=== PATIENT | male | born 1970 | race Caucasian/White ===

== ENCOUNTER 2017-08-07 12:55 | Emergency (ER) | payer BC ==
[2017-08-07] MEDS ORDERED: FENTANYL CITR 100 MCG/2 ML ONE (13:13)
[2017-08-07] MEDS ORDERED: ONDANSETRON 4 MG/2 ML VIAL ONE (13:13)
[2017-08-07] MEDS ORDERED: NA CHLORIDE 0.9% 1,000 ML ONE ×2 (13:13→13:45)
[2017-08-07] MEDS ORDERED: PROPOFOL 200 MG/20 ML VIAL IV ONE (14:26)
--- NOTE | 2017-08-07 14:47 | RAD REPORT ---
EXAM DESCRIPTION: RAD - Shoulder Left 2 View - 08/07/2017 1:58 pm CLINICAL HISTORY: Trauma, shoulder pain COMPARISON: None. TECHNIQUE: Internal and external rotation views of the left shoulder were obtained. FINDINGS: Two views are obtained though both are in similar positioning. There is dislocation of the humeral head medial and inferior to the glenoid. This is a classic location for anterior dislocation . AC joint is normal in appearance. No abnormal calcifications. IMPRESSION: Anterior humerus dislocation with no acute fractures seen.
--- NOTE | 2017-08-07 14:52 | ER ---
Nurse's Notes [facility] Name: Boby Sim Age: 47 yrs Sex: Male : 1970 Arrival Date: 08/07/2017 Time: 12:59 Bed 3 Private MD: out of town, doctor Diagnosis: Recurrent dislocation, left shoulder Presentation: 08/07 13:03 Presenting complaint: Patient states: I think I dislocated my shoulder, has happened 2 la1 twice before. Transition of care: patient was not received from another setting of care. Onset of symptoms was August 07, 2017. Initial Sepsis Screen: Does the patient meet any 2 criteria? No. Patient's initial sepsis screen is negative. Does the patient have a suspected source of infection? No. Patient's initial sepsis screen is negative. Care prior to arrival: None. 13:03 Method Of Arrival: Wheelchair la1 13:03 Acuity: RIVAS 3 la1 Historical: - Allergies: 13:04 Bactrim; la1 13:04 Biaxin; la1 - PMHx: 13:04 None; la1 - Immunization history:: Adult Immunizations up to date. - Social history:: Smoking status: Patient/guardian denies using tobacco. Screenin:15 Abuse screen: Denies threats or abuse. Denies injuries from another. Nutritional sg screening: No deficits noted. Tuberculosis screening: No symptoms or risk factors identified. Never had TB. Fall Risk None identified. Assessment: 13:15 General: Appears in no apparent distress. uncomfortable, well groomed, well developed, sg well nourished, Behavior is calm, cooperative, appropriate for age. Pain: Complains of pain in anterior aspect of left shoulder and posterior aspect of left shoulder Pain does not radiate. Quality of pain is described as aching, sharp, tender. Neuro: Level of Consciousness is awake, alert, obeys commands, Oriented to person, place, time, situation, Fisher Clam are equal bilaterally Moves all extremities. Full function Speech is normal, Facial symmetry appears normal, Pupils are PERRLA. Cardiovascular: Heart tones S1 S2 present Capillary refill is brisk in bilateral fingers Patient's skin is warm and dry. Chest pain is denied. Respiratory: Airway is patent Respiratory effort is even, unlabored, Respiratory pattern is regular, symmetrical, Breath sounds are clear. GI: No signs and/or symptoms were reported involving the gastrointestinal system. : No signs and/or symptoms were reported regarding the genitourinary system. EENT: No signs and/or symptoms were reported regarding the EENT system. Derm: Skin is intact, is healthy with good turgor, Skin is moist, Skin is pale, Skin temperature is cool abrasion noted to the right big toe joint, small amount of bleeding noted at this time, appears anu, pt at [facility]. Musculoskeletal: Range of motion: limited in left shoulder. 13:50 Reassessment: Patient appears in no apparent distress at this time. exam room and pt sg prepared for conscious sedation, Lukasz DIEGO and and at [facility] for closed shoulder reduction of left shoulder, pt tolerated procedure well. 13:50 Reassessment: SEE CONSCIOUS SEDATION FLOWSHEET. sg 14:00 Reassessment: Patient appears in no apparent distress at this time. Patient and/or sg family updated on plan of care and expected duration. Pain level reassessed. Patient is alert, oriented x 3, equal unlabored respirations, skin warm/dry/pink. awaiting new orders at this time Patient denies pain at this time. Patient states feeling better. Patient states symptoms have improved. Vital Signs: 13:04 BP 122 / 88; Pulse 67; Resp 19; Temp 97.1; Pulse Ox 100% on R/A; Weight 95.25 kg; la1 Height 5 ft. 11 in. (180.34 cm); 14:10 BP 112 / 73; Pulse 77; Resp 16 S; Pulse Ox 100% on R/A; Pain 0/10; sg 13:04 Body Mass Index 29.29 (95.25 kg, 180.34 cm) la1 ED Course: 12:59 Patient arrived in ED. mr 12:59 out of town, doctor is Private Physician. mr 13:03 Triage completed. la1 13:04 Arm band placed on left wrist. la1 13:05 Lukasz Dunlap PA is PHCP. jr8 13:05 Deep Ferreira MD is Attending Physician. jr8 13:15 Sanjay Lewis, CONOR is Primary Nurse. sg 13:15 Patient has correct armband on for positive identification. Bed in low position. Call sg light in reach. Side rails up X2. equipment monitor phototypesetting on. Pulse ox on. NIBP on. Head of bed elevated. left shoulder comfort measures provided. 13:17 Consent for conscious sedation explained by physician, signed by patient. sg 13:17 Initial lab(s) drawn, by me, held in ED. Inserted saline lock: 20 gauge in right sg antecubital area, using aseptic technique. Blood collected. 13:50 Shoulder immobilizer applied on left shoulder. sg 13:58 XRAY Shoulder LEFT 2 view In Process Unspecified. EDMS 14:21 Shoulder 1 View In Process Unspecified. EDMS 14:55 No provider procedures requiring assistance completed. IV discontinued, intact, sg bleeding controlled, No redness/swelling at site. Pressure dressing applied. Administered Medications: 13:16 Drug: NS 0.9% 1000 ml Route: IV; Rate: 100 ml/hr; Site: right antecubital; sg 13:16 Drug: fentaNYL (PF) 75 mcg Route: IVP; Site: right antecubital; sg 13:16 Drug: Zofran 4 mg Route: IVP; Site: right antecubital; sg Outcome: 14:51 Discharge ordered by MD. naranjo 14:55 Discharged to home ambulatory, with family. sg 14:55 Condition: good 14:55 Discharge instructions given to patient, Instructed on discharge instructions, follow up and referral plans. safety practices, immobilizer care Demonstrated understanding of instructions, follow-up care. 14:58 Patient left the ED. sg Signatures: Dispatcher [employer] EDSanjay Chong, RN Neha Wilder mr BillLukasz morgan PA PA jr8 Salvador Bass RN RN la1
--- NOTE | 2017-08-07 14:52 | EDPHYS ---
Physician Documentation [facility] Name: Boby Sim Age: 47 yrs Sex: Male : 1970 Arrival Date: 08/07/2017 Time: 12:59 Bed 3 Private MD: out of town, doctor ED Physician Deep Ferreira HPI: 08/07 14:01 This 47 yrs old Male presents to ER via Wheelchair with complaints of jr8 Shoulder Injury. 14:01 The patient or guardian complains of decreased range of motion, deformity, pain, jr8 tenderness. left shoulder. Context: The problem was sustained outdoors, resulted from a fall, The patient experiences decreased range of motion, The patient notes a deformity. Onset: The symptoms/episode began/occurred acutely, today. Modifying factors: the symptoms are alleviated by nothing. The symptoms are aggravated by movement. Associated signs and symptoms: The patient has no apparent associated signs or symptoms. Severity of symptoms: At their worst the symptoms were moderate, in the emergency department the symptoms are unchanged. The patient has experienced similar episodes in the past, a few times. The patient has not recently seen a physician. history of dislocation to left shoulder. Was outside jumping into water tube and dislocated shoulder again . Historical: - Allergies: 13:04 Bactrim; la1 13:04 Biaxin; la1 - PMHx: 13:04 None; la1 - Immunization history:: Adult Immunizations up to date. - Social history:: Smoking status: Patient/guardian denies using tobacco. ROS: 14:01 Eyes: Negative for injury, pain, redness, and discharge, ENT: Negative for injury, jr8 pain, and discharge, Neck: Negative for injury, pain, and swelling, Cardiovascular: Negative for chest pain, palpitations, and edema, Respiratory: Negative for shortness of breath, cough, wheezing, and pleuritic chest pain, Abdomen/GI: Negative for abdominal pain, nausea, vomiting, diarrhea, and constipation, Back: Negative for injury and pain, Skin: Negative for injury, rash, and discoloration, Neuro: Negative for headache, weakness, numbness, tingling, and seizure. 14:01 MS/extremity: Positive for injury or acute deformity, decreased range of motion, pain, tenderness, of the left shoulder. Exam: 14:01 Head/Face: Normocephalic, atraumatic. Eyes: Pupils equal round and reactive to light, jr8 extra-ocular motions intact. Lids and lashes normal. Conjunctiva and sclera are non-icteric and not injected. Cornea within normal limits. Periorbital areas with no swelling, redness, or edema. ENT: Nares patent. No nasal discharge, no septal abnormalities noted. Tympanic membranes are normal and external auditory canals are clear. Oropharynx with no redness, swelling, or masses, exudates, or evidence of obstruction, uvula midline. Mucous membranes moist. Neck: Trachea midline, no thyromegaly or masses palpated, and no cervical lymphadenopathy. Supple, full range of motion without nuchal rigidity, or vertebral point tenderness. No Meningismus. Chest/axilla: Normal chest wall appearance and motion. Nontender with no deformity. No lesions are appreciated. Cardiovascular: Regular rate and rhythm with a normal S1 and S2. No gallops, murmurs, or rubs. Normal PMI, no JVD. No pulse deficits. Respiratory: Lungs have equal breath sounds bilaterally, clear to auscultation and percussion. No rales, rhonchi or wheezes noted. No increased work of breathing, no retractions or nasal flaring. Abdomen/GI: Soft, non-tender, with normal bowel sounds. No distension or tympany. No guarding or rebound. No evidence of tenderness throughout. Back: No spinal tenderness. No costovertebral tenderness. Full range of motion. Skin: Warm, dry with normal turgor. Normal color with no rashes, no lesions, and no evidence of cellulitis. Neuro: Awake and alert, GCS 15, oriented to person, place, time, and situation. Cranial nerves II-XII grossly intact. Motor strength 5/5 in all extremities. Sensory grossly intact. Cerebellar exam normal. Normal gait. 14:01 Musculoskeletal/extremity: Extremities: grossly normal except: noted in the left shoulder: decreased ROM, deformity, pain, ROM: limited active range of motion, limited passive range of motion, limited active range of motion due to pain, limited passive range of motion due to pain, Circulation is intact in all extremities. Sensation intact. Vital Signs: 13:04 BP 122 / 88; Pulse 67; Resp 19; Temp 97.1; Pulse Ox 100% on R/A; Weight 95.25 kg; la1 Height 5 ft. 11 in. (180.34 cm); 14:10 BP 112 / 73; Pulse 77; Resp 16 S; Pulse Ox 100% on R/A; Pain 0/10; sg 13:04 Body Mass Index 29.29 (95.25 kg, 180.34 cm) la1 Procedures: 14:01 Splinting: Splint applied to left shoulder using shoulder immobilizer . applied by jr8 nurse. post reduction film - reveals normal alignment, Examined by me, post splint application: neurovascular intact, 2+ distal pulses palpable, brisk capillary refill noted, Patient tolerated well. Moderate sedation: Pre-procedure assessment: the patient has been NPO 3 hour(s) prior to arrival, ASA physical classification: I - healthy, no underlying organic disease, Airway assessment: able to hyperextend neck, able to maintain airway, can open mouth without difficulty, Mallampati classification of tongue size: II - faucial pillars and soft palate can be visualized, but uvula is masked by the base of the tongue, Monitoring during procedure: hall monitor, continuous pulse oximetry, nurse at bedside at all times, Medications employed: propofol , Post-procedure assessment: the patient is moderately sedated, Moraes sedation score: 4 - brisk response to a light glabellar tap, Respiratory status: even and unlabored, a reversal agent was not used. 14:01 Reduction: of the left shoulder, using traction, manipulation, Immobilized with jr8 shoulder immobilizer. Patient tolerated well. Post reduction film - reveals normal alignment. MDM: 13:05 Patient medically screened. [facility] 14:01 Data reviewed: vital signs, nurses notes, radiologic studies, plain films, and as a jr8 result, I will discharge patient. Data interpreted: Pulse oximetry: on room air is 100 %. Interpretation: normal. Counseling: I had a detailed discussion with the patient and/or guardian regarding: the historical points, exam findings, and any diagnostic results supporting the discharge/admit diagnosis, radiology results, the need for outpatient follow up, a orthopedic surgeon, to return to the emergency department if symptoms worsen or persist or if there are any questions or concerns that arise at home. 08/07 13:09 Order name: XRAY Shoulder LEFT 2 view; Complete Time: 14:51 jr8 08/07 14:17 Order name: Shoulder 1 View; Complete Time: 17:13 EDMS 08/07 13:09 Order name: IV; Complete Time: 13:16 jr8 08/07 13:09 Order name: Conscious Sedation; Complete Time: 13:32 jr8 Administered Medications: 13:16 Drug: NS 0.9% 1000 ml Route: IV; Rate: 100 ml/hr; Site: right antecubital; sg 13:16 Drug: fentaNYL (PF) 75 mcg Route: IVP; Site: right antecubital; sg 13:16 Drug: Zofran 4 mg Route: IVP; Site: right antecubital; sg Disposition: 08/07/17 14:51 Discharged to Home. Impression: Recurrent dislocation, left shoulder. - Condition is Stable. - Discharge Instructions: Shoulder Dislocation. - Medication Reconciliation Form, Thank You Letter, Antibiotic Education, Prescription Opioid Use form. - Follow up: Private Physician; When: 2 - 3 days; Reason: Recheck today's complaints, Continuance of care, Re-evaluation by your physician. - Problem is new. - Symptoms have improved. Addendum: 08/09/2017 09:02 Co-signature as Attending Physician, Deep Ferreira MD I agree with the assessment and c lee plan of care. Signatures: Dispatcher [employer] [facility] Sanjay Lewis RN RN Deep Ferreira MD MD cha Roszak, Josh, PA PA jr8 Salvador Bass RN RN la1 Corrections: (The following items were deleted from the chart) 08/07 14:05 14:01 Splinting: Splint applied to left shoulder using sling, applied by nurse. post jr8 reduction film - reveals normal alignment, Examined by me, post splint application: neurovascular intact, 2+ distal pulses palpable, brisk capillary refill noted, Patient tolerated well, jr8 14:17 14:00 Shoulder Left 2 View+RAD.[email or web address].BRZ ordered. [facility] 14:58 14:51 08/07/2017 14:51 Discharged to Home. Impression: Recurrent dislocation, left sg shoulder. Condition is Stable. Forms are Medication Reconciliation Form, Thank You Letter, Antibiotic Education, Prescription Opioid Use. Follow up: Private Physician; When: 2 - 3 days; Reason: Recheck today's complaints, Continuance of care, Re-evaluation by your physician. Problem is new. Symptoms have improved. jr8
--- NOTE | 2017-08-07 14:53 | RAD REPORT ---
EXAM DESCRIPTION: RAD - Shoulder 1 View - 08/07/2017 2:26 pm FINDINGS: Single view left shoulder obtained labeled post reduction. Humeral head is normally positioned. No fracture seen.
== END 2017-08-07 14:58 | disposition home or self-care (01) ==
LOC: ER 12:55
PROC: 0RSKXZZ Reposition Left Shoulder Joint, External Approach (ICD-10-PCS; principal; 2017-08-07)
DX: M24.412 Recurrent dislocation, left shoulder (principal); Z88.1 Allergy status to other antibiotic agents; Z88.8 Allergy status to other drugs, medicaments and biological substances
CPT/HCPCS: 73020; 96374; 96375; 99284; J2405; J3010; J7030